=== PATIENT | female | born 1965 | race Caucasian/White ===

== ENCOUNTER → 2017-06-11 11:15 | Outpatient (CLI) | payer MEDICARE, SELFPAY ==
--- NOTE | 2017-06-11 11:24 | XR_ITS ---
XR chest 2V COMPARISON: None HISTORY: Cough, suspect pneumonia TECHNIQUE: PA and lateral chest FINDINGS: The lung vang are fairly well-expanded. There is a patchy ill-defined pneumonic infiltrate in the right suprahilar region and anterior segment right upper lobe. There is partial minimal infiltrate in the lingula. Cardiac size is normal and is no pleural fluid. IMPRESSION: Right upper lobe pneumonia, questionable lingular involvement as well
== END ==
PROVIDERS: PCP Family Medicine; Visit Provider Family Medicine
DX: J18.9 Pneumonia, unspecified organism (principal)
CPT/HCPCS: 71046

== ENCOUNTER → 2017-06-24 12:06 | Outpatient (CLI) | payer MEDICARE, SELFPAY ==
--- NOTE | 2017-06-24 12:12 | XR_ITS ---
XR chest 2V HISTORY: ITS.REASON: PNEUMONIA OF RT LUNG ORDERING PHYSICIAN: Hakeem Membreno MD PATIENT AGE: 52 years COMPARISON: 06/11/2017 FINDINGS: Progress PA and lateral chest shows persistent but slightly improved right upper lobe pneumonia. Calcified nodes are present in the left hilum and there is a calcified granuloma in the left midlung. There is mild prominence of the right hilum however this could be vascular. Recommend follow until clear. The opacity noted within the lingula has improved. IMPRESSION: 1. Persistent but improving right upper lobe pneumonia with mild prominence of the right hilum. Continued follow-up recommended. 2. Improvement lingular infiltrate
== END ==
PROVIDERS: PCP Family Medicine; Visit Provider Family Medicine
DX: J18.9 Pneumonia, unspecified organism (principal)
CPT/HCPCS: 71046

== ENCOUNTER → 2017-07-27 13:32 | Outpatient (CLI) | payer MEDICARE, SELFPAY ==
--- NOTE | 2017-07-27 13:36 | XR_ITS ---
XR chest 2V HISTORY: ITS.REASON: PNEUMONIA ORDERING PHYSICIAN: Hakeem Membreno MD PATIENT AGE: 52 years COMPARISON: 06/24/2017 FINDINGS: The cardiomediastinal silhouette and pulmonary vascularity are within normal limits. Right upper lobe pneumonia has nearly cleared compared to the previous exam. There is some minimal residual density in the right upper lobe which could be due to postinflammatory fibrotic change or atelectasis. There is a calcified granuloma in the left midlung. A faint opacity is present in the left lower chest near the left ventricle. No acute bony anomalies. Calcified granuloma is present in the left upper lobe and there are calcified nodes in the left suprahilar region. IMPRESSION: 1. Nearly resolved right upper lobe pneumonia. 2. 15 mm indeterminate opacity overlies the left lower lobe and could be related to summation artifact versus a developing nodule. Continued follow-up recommended. If this persists, then, CT may be of further value
== END ==
PROVIDERS: PCP Family Medicine; Visit Provider Family Medicine
DX: J18.9 Pneumonia, unspecified organism (principal)
CPT/HCPCS: 71046